=== PATIENT | female | born 1990 | race Caucasian/White ===

== ENCOUNTER 2016-12-21 12:55 | Emergency (ER) | payer OTHER, BC ==
[~2016-12-21] VITALS: Ht 154.9 cm; Wt 50.0 kg
[~2016-12-21 12:55] MED LIST: ADDE10TA PO; DOXY100T17 PO; LORTA10 PO; METR-1 PO; NAPR550 PO; Z.0.BCPILL PO
[2016-12-21 12:59] VITALS: BP 110/68; PULSE 68; RESP 16; TEMP 98.6; O2SAT 100
[2016-12-21] MEDS ORDERED: ADDE10 PO (13:09)
[2016-12-21] MEDS ORDERED: ROBA500T PO (13:36)
[2016-12-21] MEDS ORDERED: IBUP800T23 PO (13:36)
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
[2016-12-21] MEDS ORDERED: IBUPROFEN 800 MG TAB PO ONE (13:45)
[2016-12-21] MEDS ORDERED: METHOCARBAMOL 500 MG TAB PO ONE (13:45)
== END 2016-12-21 13:50 | disposition home or self-care (01) ==
LOC: NEPK 12:55
DX: S46.811A Strain of other muscles, fascia and tendons at shoulder and upper arm level, right arm, initial encounter (principal); V49.40XA Driver injured in collision with unspecified motor vehicles in traffic accident, initial encounter; F17.210 Nicotine dependence, cigarettes, uncomplicated
CPT/HCPCS: 99283